=== PATIENT | female | born 1965 | race Asian ===

== ENCOUNTER 2023-05-30 13:50 | Outpatient (CLI) | payer OTHER | END 2023-05-30 13:51 | disposition home or self-care (01) | LOC: BICULT 13:50 | PROVIDERS: ATTEND Specialist | DX: M85.89 Other specified disorders of bone density and structure, multiple sites (principal); E03.9 Hypothyroidism, unspecified; R49.0 Dysphonia; R93.89 Abnormal findings on diagnostic imaging of other specified body structures | CPT/HCPCS: 76536; 77080 ==